=== PATIENT | female | born 1945 | race Caucasian/White ===

== ENCOUNTER 2017-12-31 07:42 | Emergency (ER) | payer MEDICARE ==
[~2017-12-31] VITALS: Ht 170.2 cm; Wt 49.9 kg
[~2017-12-31 07:42] MED LIST: ASPI81EC PO; B-12 COMPL1000 MCG/1 IM; CALCIT950 PO; DILT180 PO; DILT30 PO; METO50 PO; MULVITMIND PO; OMEP20ER PO; WARF5 PO
[2017-12-31] MEDS ORDERED: Flecainide Acet50 MG (08:00)
[2017-12-31] MEDS ORDERED: WARF7.5 PO (08:00)
[2017-12-31] MEDS ORDERED: Cardizem CD 24240 MG PO (08:00)
[2017-12-31 08:06] LABS: BASOPHILS ABSOLUTE AUTO 0.03 K/mm3 (0.00-0.23); BASOPHILS PERCENT AUTO 0 % (0-2); EOSINOPHILS ABSOLUTE AUTO 0.03 K/mm3 (0.00-0.68); EOSINOPHILS PERCENT AUTO 0 % (0-6); Hematocrit 42.6 % (33.0-51.0); Hemoglobin 14.4 g/dL (11.5-16.0); IMMATURE GRAN ABSOLUTE AUTO 0.03 K/mm3 (0.00-0.10); IMMATURE GRAN PERCENT AUTO 0 % (0-1); LYMPHOCYTES ABSOLUTE AUTO 2.18 K/mm3 (0.84-5.20); LYMPHOCYTES PERCENT AUTO 26 % (21-46); MONOCYTES ABSOLUTE AUTO 0.85 K/mm3 (0.16-1.47); MONOCYTES PERCENT AUTO 10 % (4-13); Mean Corpuscular HGB 30.6 pg (26.0-34.0); Mean Corpuscular HGB Conc 33.8 g/dL (31.5-36.5); Mean Corpuscular Volume 90 fL (80-100); Mean Platelet Volume 10.5 fL (9.1-12.4); NEUTROPHILS ABSOLUTE AUTO 5.44 K/mm3 (1.96-9.15); NEUTROPHILS PERCENT AUTO 63 % (41-73); Platelet Count 256 K/mm3 (150-400); RDW Coefficient Variation 12.6 % (11.7-14.2); RDW Standard Deviation 41.4 fL (35.1-46.3); Red Blood Cell Count 4.71 M/mm3 (3.80-5.20); White Blood Cell Count 8.56 K/mm3 (4.00-11.30)
[2017-12-31 08:26] LABS: International Normalized Ratio 2.11; Prothrombin Time Results 22.5 Sec (9.7-11.5)
[2017-12-31 08:54] LABS: Alanine Aminotransfer (ALT/SGP 24 U/L (12-78); Albumin, Blood 3.5 g/dL (3.4-5.0); Alk Phos 54 U/L (50-136); Anion Gap 6 mmol/L (6-16); Aspartate Aminotrans (AST/SGOT 30 U/L (12-37); Bilirubin, Total 0.7 mg/dL (0.1-1.0); Blood Urea Nitrogen 12 mg/dL (8-24); Bun/Creatinine Ratio 17.4 (12.0-20.0); CO2, Blood 26 mmol/L (21-32); Calcium, Blood 8.5 mg/dL (8.5-10.1); Chloride, Blood 109 mmol/L (98-108); Creatinine, Blood 0.69 mg/dL (0.40-1.00); Globulin, Blood 3.5 g/dL (2.2-4.0); Glomerular Filtration Rate >60 (60-); Glucose, Blood 88 mg/dL (70-99); Magnesium, Blood 2.1 mg/dL (1.6-2.4); Potassium, Blood 4.7 mmol/L (3.5-5.5); Sodium, Blood 141 mmol/L (136-145); Troponin I <0.015 ng/mL (0.000-0.040)
== END 2017-12-31 09:42 | disposition home or self-care (01) ==
LOC: ER 07:42
PROVIDERS: Emergency Medicine
DX: R42 Dizziness and giddiness (principal); F43.9 Reaction to severe stress, unspecified; I48.91 Unspecified atrial fibrillation; Z88.1 Allergy status to other antibiotic agents; Z88.8 Allergy status to other drugs, medicaments and biological substances; Z79.899 Other long term (current) drug therapy; Z79.01 Long term (current) use of anticoagulants
CPT/HCPCS: 80053; 81000; 83735; 84443; 84484; 85025; 85610; 93005; 93010; 99284

== ENCOUNTER → 2018-02-05 | Outpatient (CLI) | payer MEDICARE ==
[~2018-02-05] MED LIST changes: +Cardizem CD 24240 MG PO; +Flecainide Acet50 MG; +WARF7.5 PO
== END | disposition home or self-care (01) ==
LOC: PLD 08:42 → LAB SHORT 08:42
DX: D48.5 Neoplasm of uncertain behavior of skin (principal)
CPT/HCPCS: 88305

== ENCOUNTER 2019-04-15 07:41 | Emergency (ER) | payer MEDICARE ==
[~2019-04-15] VITALS: Ht 165.1 cm; Wt 49.0 kg
[2019-04-15 08:30] LABS: Source, Urine Clean Catch
[2019-04-15 08:38] LABS: Bilirubin, Urine Neg (Neg); Blood, Urine Neg (Neg); Glucose Qualitative, Urine Neg (Neg); Ketones, Urine Neg (Neg); Leukocyte Esterase, Urine Neg (Neg); Nitrite, Urine Neg (Neg); Protein, Urine Neg (Neg); Urobilinogen, Urine NORM (Normal)
[2019-04-15 08:40] LABS: BASOPHILS ABSOLUTE AUTO 0.04 K/mm3 (0.00-0.23); BASOPHILS PERCENT AUTO 1 % (0-2); EOSINOPHILS ABSOLUTE AUTO 0.05 K/mm3 (0.00-0.68); EOSINOPHILS PERCENT AUTO 1 % (0-6); Hematocrit 41.4 % (33.0-51.0); Hemoglobin 13.6 g/dL (11.5-16.0); IMMATURE GRAN ABSOLUTE AUTO 0.02 K/mm3 (0.00-0.10); IMMATURE GRAN PERCENT AUTO 0 % (0-1); LYMPHOCYTES ABSOLUTE AUTO 2.32 K/mm3 (0.84-5.20); LYMPHOCYTES PERCENT AUTO 32 % (21-46); MONOCYTES ABSOLUTE AUTO 0.83 K/mm3 (0.16-1.47); MONOCYTES PERCENT AUTO 11 % (4-13); Mean Corpuscular HGB 30.2 pg (26.0-34.0); Mean Corpuscular HGB Conc 32.9 g/dL (31.5-36.5); Mean Corpuscular Volume 92 fL (80-100); Mean Platelet Volume 10.7 fL (9.1-12.4); NEUTROPHILS ABSOLUTE AUTO 4.08 K/mm3 (1.96-9.15); NEUTROPHILS PERCENT AUTO 56 % (41-73); Platelet Count 247 K/mm3 (150-400); RDW Coefficient Variation 12.9 % (11.7-14.2); RDW Standard Deviation 43.3 fL (35.1-46.3); Red Blood Cell Count 4.51 M/mm3 (3.80-5.20); White Blood Cell Count 7.34 K/mm3 (4.00-11.30)
[2019-04-15 08:49] LABS: Appearance, Urine Clear (Clear); Color, Urine Pale Yellow (P-Yellow)
[2019-04-15 08:51] LABS: Alanine Aminotransfer (ALT/SGP 25 U/L (12-78); Albumin, Blood 3.5 g/dL (3.4-5.0); Albumin/Globulin Ratio 1.1 (0.8-1.8); Alk Phos 54 U/L (50-136); Anion Gap 11 mmol/L (6-16); Aspartate Aminotrans (AST/SGOT 21 U/L (12-37); Bilirubin, Total 0.6 mg/dL (0.1-1.0); Blood Urea Nitrogen 10 mg/dL (8-24); Bun/Creatinine Ratio 16.5 (12.0-20.0); CO2, Blood 22 mmol/L (21-32); Calcium, Blood 8.2 mg/dL (8.5-10.1); Chloride, Blood 110 mmol/L (98-108); Creatinine, Blood 0.61 mg/dL (0.40-1.00); Globulin, Blood 3.2 g/dL (2.2-4.0); Glomerular Filtration Rate >60 (60-); Glucose, Blood 102 mg/dL (70-99); Potassium, Blood 3.8 mmol/L (3.5-5.5); Sodium, Blood 143 mmol/L (136-145); Total Protein, Blood 6.7 g/dL (6.4-8.2); Troponin I <0.015 ng/mL (0.000-0.040)
== END 2019-04-15 10:55 | disposition home or self-care (01) ==
LOC: ER 07:41
PROVIDERS: Emergency Medicine
DX: I48.91 Unspecified atrial fibrillation (principal); Z88.1 Allergy status to other antibiotic agents; Z88.8 Allergy status to other drugs, medicaments and biological substances; Z79.01 Long term (current) use of anticoagulants; Z79.899 Other long term (current) drug therapy
CPT/HCPCS: 36415; 71046; 80053; 81003; 83735; 84484; 85025; 93005; 93010; 99285-25

== ENCOUNTER → 2020-08-12 | Outpatient (CLI) | payer MEDICARE ==
[~2020-08-12] MED LIST changes: +PROLIA60 MG/1 ML
== END ==
LOC: LAB 11:54 → LAB SHORT 11:54 → OLS 11:54
DX: I77.6 Arteritis, unspecified (principal)
CPT/HCPCS: 85651

== ENCOUNTER → 2020-09-30 | Outpatient (CLI) | payer MEDICARE | END | disposition home or self-care (01) | LOC: LAB SHORT 12:09 → LAB 12:09 | DX: I77.6 Arteritis, unspecified (principal) | CPT/HCPCS: 85651 ==

== ENCOUNTER 2020-12-06 11:31 | Day surgery (SDC) | payer MEDICARE ==
[~2020-12-06] VITALS: Ht 167.6 cm; Wt 52.1 kg
== END 2020-12-06 13:52 | disposition home or self-care (01) ==
LOC: ORSCSDS 11:31
PROVIDERS: Student in an Organized Health Care Education/Training Program
PROC: 0DB58ZX Excision of Esophagus, Via Natural or Artificial Opening Endoscopic, Diagnostic (ICD-10-PCS; principal; 2020-12-06 12:45)
DX: K21.9 Gastro-esophageal reflux disease without esophagitis (principal); C15.9 Malignant neoplasm of esophagus, unspecified; Z79.01 Long term (current) use of anticoagulants; Z79.899 Other long term (current) drug therapy
CPT/HCPCS: 88305; J2704; J7120

== ENCOUNTER 2021-03-07 18:07 | Emergency (ER) | payer MEDICARE ==
[~2021-03-07] VITALS: Ht 167.6 cm; Wt 50.8 kg
== END 2021-03-07 23:00 | disposition home or self-care (01) ==
LOC: ER 18:07
DX: K94.23 Gastrostomy malfunction (principal); Y83.1 Surgical operation with implant of artificial internal device as the cause of abnormal reaction of the patient, or of later complication, without mention of misadventure at the time of the procedure; Z88.0 Allergy status to penicillin; Z88.8 Allergy status to other drugs, medicaments and biological substances; Z88.1 Allergy status to other antibiotic agents; Z79.01 Long term (current) use of anticoagulants; Z79.899 Other long term (current) drug therapy
CPT/HCPCS: 99282-25

== ENCOUNTER 2021-04-25 06:13 | Day surgery (SDC) | payer MEDICARE | END 2021-04-25 11:03 | disposition home or self-care (01) | LOC: ATC 06:13 | DX: I48.91 Unspecified atrial fibrillation (principal) | CPT/HCPCS: 96372; J1650 ==

== ENCOUNTER 2021-04-26 02:08 | Day surgery (SDC) | payer MEDICARE | END 2021-04-26 10:31 | disposition home or self-care (01) | LOC: ATC 02:08 | DX: I48.91 Unspecified atrial fibrillation (principal) | CPT/HCPCS: 96372; J1650 ==

== ENCOUNTER 2021-04-27 10:35 | Day surgery (SDC) | payer MEDICARE | END 2021-04-27 11:03 | disposition home or self-care (01) | LOC: ATC 10:35 | DX: I48.91 Unspecified atrial fibrillation (principal) | CPT/HCPCS: 96372; J1650 ==

== ENCOUNTER 2021-04-28 00:32 | Day surgery (SDC) | payer MEDICARE | END 2021-04-28 09:18 | disposition home or self-care (01) | LOC: ATC 00:32 | DX: I48.91 Unspecified atrial fibrillation (principal) | CPT/HCPCS: 96372; J1650 ==

== ENCOUNTER 2021-04-29 00:15 | Day surgery (SDC) | payer MEDICARE ==
[2021-04-30] MEDS ORDERED: ENOX80I SC (11:10)
== END 2021-04-29 10:42 | disposition home or self-care (01) ==
LOC: ATC 00:15
DX: I48.91 Unspecified atrial fibrillation (principal)
CPT/HCPCS: 96372; J1650

== ENCOUNTER 2021-04-30 02:13 | Day surgery (SDC) | payer MEDICARE ==
[2021-04-30] MEDS ORDERED: ENOX80I SC (11:10)
== END 2021-04-30 10:30 | disposition home or self-care (01) ==
LOC: ATC 02:13
DX: I48.91 Unspecified atrial fibrillation (principal)
CPT/HCPCS: 96372; J1650

== ENCOUNTER 2021-05-01 02:06 | Day surgery (SDC) | payer MEDICARE ==
[~2021-05-01 02:06] MED LIST changes: +ENOX80I SC
[2021-05-02] MEDS ORDERED: WARF1 (10:35)
== END 2021-05-01 10:35 | disposition home or self-care (01) ==
LOC: ATC 02:06
DX: I48.91 Unspecified atrial fibrillation (principal)
CPT/HCPCS: 96372; J1650

== ENCOUNTER 2021-05-02 10:18 | Day surgery (SDC) | payer MEDICARE ==
[~2021-05-02] VITALS: Ht 167.6 cm; Wt 49.0 kg
[2021-05-02] MEDS ORDERED: WARF1 (10:35)
== END 2021-05-02 12:30 | disposition home or self-care (01) ==
LOC: ORSCSDS 10:18
PROVIDERS: Student in an Organized Health Care Education/Training Program
PROC: 0DB58ZX Excision of Esophagus, Via Natural or Artificial Opening Endoscopic, Diagnostic (ICD-10-PCS; principal; 2021-05-02 12:00)
DX: R13.10 Dysphagia, unspecified (principal); Z85.01 Personal history of malignant neoplasm of esophagus; I48.0 Paroxysmal atrial fibrillation; Z87.891 Personal history of nicotine dependence; Z79.01 Long term (current) use of anticoagulants; Z79.899 Other long term (current) drug therapy
CPT/HCPCS: 88305; J2704; J7120

== ENCOUNTER → 2021-08-17 | Outpatient (CLI) | payer MEDICARE ==
[~2021-08-17] MED LIST changes: +WARF1
== END | disposition home or self-care (01) ==
LOC: LAB SHORT 18:16
DX: R31.0 Gross hematuria (principal)
CPT/HCPCS: 87086

== ENCOUNTER → 2022-02-01 | Outpatient (CLI) | payer MEDICARE ==
[2022-02-01 15:41] LABS: Albumin, Blood 3.5 g/dL (3.4-5.0); Albumin/Globulin Ratio 1.3 (0.8-1.8); Bilirubin, Total 0.6 mg/dL (0.1-1.0); Bun/Creatinine Ratio 34.6 (12.0-20.0); Calcium, Blood 8.7 mg/dL (8.5-10.1); Creatinine, Blood 0.55 mg/dL (0.40-1.00); Globulin, Blood 2.7 g/dL (2.2-4.0); Potassium, Blood 4.4 mmol/L (3.5-5.5); Total Protein, Blood 6.2 g/dL (6.4-8.2)
[2022-02-01 15:57] LABS: BASOPHILS ABSOLUTE AUTO 0.02 K/mm3 (0.00-0.23); BASOPHILS PERCENT AUTO 0 % (0-2); EOSINOPHILS ABSOLUTE AUTO 0.03 K/mm3 (0.00-0.68); EOSINOPHILS PERCENT AUTO 1 % (0-6); Hematocrit 35.1 % (33.0-51.0); Hemoglobin 11.5 g/dL (11.5-16.0); IMMATURE GRAN ABSOLUTE AUTO 0.01 K/mm3 (0.00-0.10); IMMATURE GRAN PERCENT AUTO 0 % (0-1); LYMPHOCYTES ABSOLUTE AUTO 1.07 K/mm3 (0.84-5.20); LYMPHOCYTES PERCENT AUTO 20 % (21-46); MONOCYTES PERCENT AUTO 9 % (4-13); Mean Corpuscular HGB 31.2 pg (26.0-34.0); Mean Corpuscular HGB Conc 32.8 g/dL (31.5-36.5); Mean Corpuscular Volume 95 fL (80-100); Mean Platelet Volume 10.4 fL (9.1-12.4); NEUTROPHILS ABSOLUTE AUTO 3.81 K/mm3 (1.96-9.15); NEUTROPHILS PERCENT AUTO 70 % (41-73); Platelet Count 213 K/mm3 (150-400); RDW Coefficient Variation 12.7 % (11.7-14.2); RDW Standard Deviation 44.4 fL (35.1-46.3); Red Blood Cell Count 3.69 M/mm3 (3.80-5.20); White Blood Cell Count 5.44 K/mm3 (4.00-11.30)
== END ==
LOC: LAB SHORT 12:20
PROVIDERS: Hospitalist
DX: N20.0 Calculus of kidney (principal); R11.0 Nausea
CPT/HCPCS: 80053; 85025

== ENCOUNTER → 2022-07-06 | Outpatient (CLI) | payer MEDICARE ==
[2022-07-06 16:30] LABS: Influenza B, PCR NEGATIVE (NEGATIVE); Resp Syncytial Virus, PCR NEGATIVE (NEGATIVE); SARS-Cov-2 (COVID-19) PCR, MMC NEGATIVE (NEGATIVE)
[2022-07-06 16:31] LABS: Influenza A, PCR POSITIVE (NEGATIVE)
== END | disposition home or self-care (01) ==
LOC: LAB 11:53 → LAB SHORT 11:53
PROVIDERS: Hospitalist
DX: J06.9 Acute upper respiratory infection, unspecified (principal)
CPT/HCPCS: 0241U

== ENCOUNTER 2023-04-10 08:04 | Emergency (ER) | payer MEDICARE ==
[~2023-04-10] VITALS: Ht 165.1 cm; Wt 45.8 kg
[2023-04-10 08:35] LABS: BASOPHILS ABSOLUTE AUTO 0.03 K/mm3 (0.00-0.23); BASOPHILS PERCENT AUTO 1 % (0-2); EOSINOPHILS ABSOLUTE AUTO 0.04 K/mm3 (0.00-0.68); EOSINOPHILS PERCENT AUTO 1 % (0-6); Hematocrit 37.4 % (33.0-51.0); Hemoglobin 12.1 g/dL (11.5-16.0); IMMATURE GRAN ABSOLUTE AUTO 0.02 K/mm3 (0.00-0.10); IMMATURE GRAN PERCENT AUTO 0 % (0-1); LYMPHOCYTES PERCENT AUTO 27 % (21-46); MONOCYTES ABSOLUTE AUTO 0.63 K/mm3 (0.16-1.47); MONOCYTES PERCENT AUTO 11 % (4-13); Mean Corpuscular HGB Conc 32.4 g/dL (31.5-36.5); Mean Corpuscular Volume 93 fL (80-100); Mean Platelet Volume 9.8 fL (9.1-12.4); NEUTROPHILS ABSOLUTE AUTO 3.33 K/mm3 (1.96-9.15); NEUTROPHILS PERCENT AUTO 60 % (41-73); Platelet Count 200 K/mm3 (150-400); RDW Coefficient Variation 12.8 % (11.7-14.2); Red Blood Cell Count 4.04 M/mm3 (3.80-5.20); White Blood Cell Count 5.55 K/mm3 (4.00-11.30)
[2023-04-10 08:57] LABS: Albumin, Blood 3.2 g/dL (3.4-5.0); Bilirubin, Total 0.3 mg/dL (0.1-1.0); Bun/Creatinine Ratio 21.4 (12.0-20.0); Calcium, Blood 8.3 mg/dL (8.5-10.1); Creatinine, Blood 0.66 mg/dL (0.40-1.00); Globulin, Blood 3.2 g/dL (2.2-4.0); Potassium, Blood 3.4 mmol/L (3.5-5.5); Total Protein, Blood 6.4 g/dL (6.4-8.2)
[2023-04-10 11:55] LABS: Source, Urine Clean Catch
[2023-04-10 12:00] LABS: Appearance, Urine Hazy (Clear); Bilirubin, Urine Neg (Neg); Blood, Urine 5+ (Neg); Color, Urine Amber (P-Yellow); Glucose Qualitative, Urine Neg (Neg); Ketones, Urine 1+ (Neg); Leukocyte Esterase, Urine 1+ (Neg); Nitrite, Urine Neg (Neg); Protein, Urine 2+ (Neg); Urobilinogen, Urine NORM (Normal)
[2023-04-10 12:11] LABS: Amorphous Light (0-Heavy); Bacteria Rare /hpf; Calcium Oxalate Crystals Few /hpf; Red Blood Cells, Urine TNTC /hpf (0-2); Squamous Epithelial Cells Rare /hpf (Few)
[2023-04-10 12:16] LABS: International Normalized Ratio 3.39; Prothrombin Time Results 33.2 Sec (9.7-11.5)
[2023-04-10 12:33] VITALS: BP 123/81
[2023-04-10] MEDS ORDERED: TAMS.4ER PO (13:21)
[2023-04-10] MEDS ORDERED: CEFP200 PO (13:21)
[2023-04-10] MEDS ORDERED: OXAYDO5 M1 PO (13:21)
[2023-04-10] MEDS ORDERED: PROM12.5S PR (13:30)
[2023-04-10] MEDS ORDERED: ONDA4ODT MM (13:30)
== END 2023-04-10 15:14 | disposition home or self-care (01) ==
LOC: ER 08:04
PROVIDERS: Emergency Medicine; Student in an Organized Health Care Education/Training Program
DX: N13.2 Hydronephrosis with renal and ureteral calculous obstruction (principal); N36.8 Other specified disorders of urethra; I48.91 Unspecified atrial fibrillation; Z88.0 Allergy status to penicillin; Z88.1 Allergy status to other antibiotic agents; Z88.8 Allergy status to other drugs, medicaments and biological substances; Z79.899 Other long term (current) drug therapy; Z79.01 Long term (current) use of anticoagulants
CPT/HCPCS: 74177; 76856; 80053; 81001; 85025; 85610; 87086; 96374-59; 96375-59; 99284-25; J0696; J1170; J2405; J3480; J7030; Q9967

== ENCOUNTER → 2023-09-13 | Outpatient (CLI) | payer MEDICARE ==
[~2023-09-13] MED LIST changes: +CEFP200 PO; +ONDA4ODT MM; +OXAYDO5 M1 PO; +PROM12.5S PR; +TAMS.4ER PO
[2023-09-13 10:52] LABS: Adenovirus F 40/41 Not Detected (NOT DETECT); Astrovirus Not Detected (NOT DETECT); Campylobacter Sp Not Detected (NOT DETECT); Cryptosporidium Not Detected (NOT DETECT); Cyclospora Cayetanensis Not Detected (NOT DETECT); E. Coli O157 Not Detected (NOT DETECT); Entamoeba Histolytica Not Detected (NOT DETECT); Enteroaggregative E. coli-EAEC Not Detected (NOT DETECT); Enteropathogenic E. coli-EPEC Not Detected (NOT DETECT); Enterotoxigenic E. coli-ETEC Not Detected (NOT DETECT); Giardia Lamblia Not Detected (NOT DETECT); Norovirus GI/GII Not Detected (NOT DETECT); Plesiomonas Shigelloides Not Detected (NOT DETECT); Rotavirus A Not Detected (NOT DETECT); Salmonella Sp Not Detected (NOT DETECT); Sapovirus Not Detected (NOT DETECT); Shiga Toxin-prod E. coli-STEC Not Detected (NOT DETECT); Shigella/Enteroin E. coli-EIEC Not Detected (NOT DETECT); Vibrio Cholerae Not Detected (NOT DETECT); Vibrio Sp Not Detected (NOT DETECT); Yersinia Enterocolitica Not Detected (NOT DETECT)
== END | disposition home or self-care (01) ==
LOC: LAB SHORT 07:30 → LAB 07:30
PROVIDERS: Hospitalist
DX: R19.7 Diarrhea, unspecified (principal)
CPT/HCPCS: 87507

== ENCOUNTER 2023-09-24 13:12 | Emergency (ER) | payer MEDICARE ==
[~2023-09-24] VITALS: Ht 165.1 cm; Wt 45.8 kg
[2023-09-24] MEDS ORDERED: WARFARIN (14:49)
[2023-09-24 15:08] LABS: Influenza A, PCR NEGATIVE (NEGATIVE); Influenza B, PCR NEGATIVE (NEGATIVE); Resp Syncytial Virus, PCR NEGATIVE (NEGATIVE)
[2023-09-24 15:09] LABS: BASOPHILS ABSOLUTE AUTO 0.02 K/mm3 (0.00-0.23); BASOPHILS PERCENT AUTO 0 % (0-2); EOSINOPHILS ABSOLUTE AUTO 0.01 K/mm3 (0.00-0.68); EOSINOPHILS PERCENT AUTO 0 % (0-6); Hematocrit 33.4 % (33.0-51.0); Hemoglobin 10.7 g/dL (11.5-16.0); IMMATURE GRAN ABSOLUTE AUTO 0.01 K/mm3 (0.00-0.10); IMMATURE GRAN PERCENT AUTO 0 % (0-1); LYMPHOCYTES ABSOLUTE AUTO 0.88 K/mm3 (0.84-5.20); LYMPHOCYTES PERCENT AUTO 12 % (21-46); MONOCYTES ABSOLUTE AUTO 1.15 K/mm3 (0.16-1.47); MONOCYTES PERCENT AUTO 15 % (4-13); Mean Corpuscular HGB 26.6 pg (26.0-34.0); Mean Corpuscular Volume 83 fL (80-100); Mean Platelet Volume 10.5 fL (9.1-12.4); NEUTROPHILS ABSOLUTE AUTO 5.43 K/mm3 (1.96-9.15); NEUTROPHILS PERCENT AUTO 73 % (41-73); Platelet Count 239 K/mm3 (150-400); RDW Coefficient Variation 15.6 % (11.7-14.2); RDW Standard Deviation 47.3 fL (35.1-46.3); Red Blood Cell Count 4.02 M/mm3 (3.80-5.20)
[2023-09-24 15:11] LABS: SARS-Cov-2 (COVID-19) PCR, MMC POSITIVE (NEGATIVE)
[2023-09-24] MEDS ORDERED: PAXLOVID 150-11 EAC1 PO (15:31)
[2023-09-24 15:32] LABS: International Normalized Ratio 1.98
[2023-09-24 15:46] LABS: Albumin, Blood 3.4 g/dL (3.4-5.0); Bilirubin, Total 0.4 mg/dL (0.1-1.0); Bun/Creatinine Ratio 17.6 (12.0-20.0); Calcium, Blood 8.6 mg/dL (8.5-10.1); Creatinine, Blood 0.57 mg/dL (0.40-1.00); Globulin, Blood 3.3 g/dL (2.2-4.0); Potassium, Blood 3.7 mmol/L (3.5-5.5); Total Protein, Blood 6.7 g/dL (6.4-8.2)
[2023-09-24 16:46] VITALS: BP 163/80
== END 2023-09-24 16:51 | disposition home or self-care (01) ==
LOC: ER 13:12
PROVIDERS: Student in an Organized Health Care Education/Training Program
DX: U07.1 COVID-19 (principal); I48.91 Unspecified atrial fibrillation; Z79.01 Long term (current) use of anticoagulants; Z79.899 Other long term (current) drug therapy; Z88.0 Allergy status to penicillin; Z88.1 Allergy status to other antibiotic agents; Z88.8 Allergy status to other drugs, medicaments and biological substances
CPT/HCPCS: 0241U; 71046; 80053; 85025; 85610; 85730; 99285-25

== ENCOUNTER 2024-01-31 08:00 | Emergency (ER) | payer MEDICARE ==
[~2024-01-31] VITALS: Ht 165.1 cm; Wt 45.4 kg
[~2024-01-31 08:00] MED LIST changes: +PAXLOVID 150-11 EAC1 PO; +WARFARIN
[2024-01-31] MEDS ORDERED: DILTIAZEM 24HR120 M4 PO (08:08)
[2024-01-31] MEDS ORDERED: JANTOVEN5 M2 PO (08:08)
[2024-01-31] MEDS ORDERED: Tambocor100 MG PO (08:08)
[2024-01-31 08:20] LABS: Source, Urine Clean Catch
[2024-01-31 08:24] LABS: BASOPHILS ABSOLUTE AUTO 0.03 K/mm3 (0.00-0.23); BASOPHILS PERCENT AUTO 1 % (0-2); EOSINOPHILS ABSOLUTE AUTO 0.05 K/mm3 (0.00-0.68); EOSINOPHILS PERCENT AUTO 1 % (0-6); Hematocrit 34.9 % (33.0-51.0); Hemoglobin 10.9 g/dL (11.5-16.0); IMMATURE GRAN ABSOLUTE AUTO 0.02 K/mm3 (0.00-0.10); IMMATURE GRAN PERCENT AUTO 0 % (0-1); LYMPHOCYTES ABSOLUTE AUTO 1.06 K/mm3 (0.84-5.20); LYMPHOCYTES PERCENT AUTO 19 % (21-46); MONOCYTES PERCENT AUTO 11 % (4-13); Mean Corpuscular HGB 26.2 pg (26.0-34.0); Mean Corpuscular HGB Conc 31.2 g/dL (31.5-36.5); Mean Corpuscular Volume 84 fL (80-100); Mean Platelet Volume 9.9 fL (9.1-12.4); NEUTROPHILS ABSOLUTE AUTO 3.78 K/mm3 (1.96-9.15); NEUTROPHILS PERCENT AUTO 68 % (41-73); Platelet Count 241 K/mm3 (150-400); RDW Coefficient Variation 15.9 % (11.7-14.2); RDW Standard Deviation 48.8 fL (35.1-46.3); Red Blood Cell Count 4.16 M/mm3 (3.80-5.20); White Blood Cell Count 5.54 K/mm3 (4.00-11.30)
[2024-01-31 08:32] LABS: Appearance, Urine Cloudy (Clear); Bilirubin, Urine Neg (Neg); Blood, Urine 5+ (Neg); Color, Urine Amber (P-Yellow); Glucose Qualitative, Urine Neg (Neg); Ketones, Urine Neg (Neg); Leukocyte Esterase, Urine 1+ (Neg); Nitrite, Urine Neg (Neg); Protein, Urine 3+ (Neg); Urobilinogen, Urine NORM (Normal)
[2024-01-31 08:39] LABS: Albumin, Blood 3.3 g/dL (3.4-5.0); Albumin/Globulin Ratio 1.1 (0.8-1.8); Bilirubin, Total 0.3 mg/dL (0.1-1.0); Bun/Creatinine Ratio 17.8 (12.0-20.0); Calcium, Blood 8.1 mg/dL (8.5-10.1); Creatinine, Blood 0.79 mg/dL (0.40-1.00); Potassium, Blood 3.7 mmol/L (3.5-5.5); Total Protein, Blood 6.3 g/dL (6.4-8.2)
[2024-01-31 08:46] LABS: Red Blood Cells, Urine TNTC /hpf (0-2)
[2024-01-31 08:47] LABS: Bacteria Many /hpf; Mucus Mod (0-Heavy); Squamous Epithelial Cells Rare /hpf (Few)
[2024-01-31 08:48] LABS: Calcium Oxalate Crystals Mod /hpf
[2024-01-31] MEDS ORDERED: HYDR1TAB94 PO (10:58)
[2024-01-31 11:00] VITALS: BP 131/60
[2024-01-31] MEDS ORDERED: Flomax0.4 MG PO (11:06)
[2024-01-31] MEDS ORDERED: ONDA4ODT MM (11:06)
== END 2024-01-31 11:25 | disposition home or self-care (01) ==
LOC: ER 08:00
PROVIDERS: Emergency Medicine
DX: N13.2 Hydronephrosis with renal and ureteral calculous obstruction (principal)
CPT/HCPCS: 74177; 80053; 81001; 85025; 87086; 99284-25; Q9967

== ENCOUNTER → 2024-05-22 | Outpatient (CLI) | payer MEDICARE ==
[~2024-05-22] MED LIST changes: +DILTIAZEM 24HR120 M4 PO; +Flomax0.4 MG PO; +HYDR1TAB94 PO; +JANTOVEN5 M2 PO; +Tambocor100 MG PO
[2024-05-22 19:45] LABS: Bun/Creatinine Ratio 16.4 (12.0-20.0); Calcium, Blood 8.4 mg/dL (8.5-10.1); Creatinine, Blood 0.67 mg/dL (0.40-1.00); Potassium, Blood 3.6 mmol/L (3.5-5.5)
== END ==
LOC: LAB SHORT 17:29 → LAB 17:29
PROVIDERS: Hospitalist
DX: N13.30 Unspecified hydronephrosis (principal)
CPT/HCPCS: 80048

== ENCOUNTER 2024-05-31 13:54 | Observation (INO) | payer MEDICARE ==
[~2024-05-31] VITALS: Ht 165.1 cm; Wt 45.4 kg
[2024-05-31] MEDS ORDERED: Acetaminophen 500 MG Tab PO ONE (14:35)
[2024-05-31 16:43] LABS: BASOPHILS ABSOLUTE AUTO 0.04 K/mm3 (0.00-0.23); BASOPHILS PERCENT AUTO 1 % (0-2); EOSINOPHILS ABSOLUTE AUTO 0.02 K/mm3 (0.00-0.68); EOSINOPHILS PERCENT AUTO 0 % (0-6); Hemoglobin 9.2 g/dL (11.5-16.0); IMMATURE GRAN ABSOLUTE AUTO 0.03 K/mm3 (0.00-0.10); IMMATURE GRAN PERCENT AUTO 0 % (0-1); LYMPHOCYTES ABSOLUTE AUTO 1.26 K/mm3 (0.84-5.20); LYMPHOCYTES PERCENT AUTO 15 % (21-46); MONOCYTES ABSOLUTE AUTO 0.84 K/mm3 (0.16-1.47); MONOCYTES PERCENT AUTO 10 % (4-13); Mean Corpuscular HGB 24.9 pg (26.0-34.0); Mean Corpuscular HGB Conc 30.7 g/dL (31.5-36.5); Mean Corpuscular Volume 81 fL (80-100); Mean Platelet Volume 9.8 fL (9.1-12.4); NEUTROPHILS ABSOLUTE AUTO 6.09 K/mm3 (1.96-9.15); NEUTROPHILS PERCENT AUTO 74 % (41-73); Platelet Count 278 K/mm3 (150-400); RDW Coefficient Variation 15.3 % (11.7-14.2); RDW Standard Deviation 45.5 fL (35.1-46.3); Red Blood Cell Count 3.69 M/mm3 (3.80-5.20); White Blood Cell Count 8.28 K/mm3 (4.00-11.30)
[2024-05-31 16:59] LABS: Albumin, Blood 3.1 g/dL (3.4-5.0); Bilirubin, Total 0.3 mg/dL (0.1-1.0); Bun/Creatinine Ratio 21.5 (12.0-20.0); Calcium, Blood 8.3 mg/dL (8.5-10.1); Creatinine, Blood 0.74 mg/dL (0.40-1.00); Globulin, Blood 3.1 g/dL (2.2-4.0); Potassium, Blood 3.8 mmol/L (3.5-5.5); Total Protein, Blood 6.2 g/dL (6.4-8.2)
[2024-05-31 20:25] LABS: International Normalized Ratio 1.59; Prothrombin Time Results 16.4 Sec (9.7-11.5)
[2024-05-31] MEDS ORDERED: OxyCODONE HCL 5 MG TAB PO PRN (21:15)
[2024-05-31] MEDS ORDERED: Acetaminophen 325 MG TABLET PO PRN (21:20)
[2024-05-31] MEDS ORDERED: Lactated Ringer's 1,000 ML IV SCH (22:00)
[2024-05-31 23:15] VITALS: BP 155/65
[2024-05-31] MEDS ORDERED: FLU VACC TS2024-25(6MOS UP)/PF 45 MCG/0.5 ML SYRINGE IM ONE (23:30)
--- NOTE | 2024-05-31 23:30 | NUR ---
ADMIT TO SURGICAL FLOOR PT ARRIVED TO SURGICAL UNIT AT 2300 TODAY. PT A/OX4 AND ABLE TO STAND/PIVOT FROM GURNEY TO BED PER HER REQUEST. PT PLEASANT AND COOPERATIVE. REQUESTING ONLY TYLENOL AT THIS TIME FOR PAIN MANAGEMENT. DENIES CHEST PAIN, N/T, N/V OR DYSPNEA. VSS, ON RA. IV PATENT AND SL. SCD APPLIED PER ORDERS. PLAN TO HAVE ORTHO EVALUATION TOMORROW. PT RESTING IN BED, DENIES NEEDS. DEMONSTRATED CALL LIGHT USE. WILL CONTINUE TO CARE FOR PT.
[2024-06-01 04:37] VITALS: BP 132/64
[2024-06-01 04:39] LABS: BASOPHILS ABSOLUTE AUTO 0.03 K/mm3 (0.00-0.23); BASOPHILS PERCENT AUTO 1 % (0-2); EOSINOPHILS ABSOLUTE AUTO 0.05 K/mm3 (0.00-0.68); EOSINOPHILS PERCENT AUTO 1 % (0-6); Hematocrit 27.2 % (33.0-51.0); Hemoglobin 8.4 g/dL (11.5-16.0); IMMATURE GRAN ABSOLUTE AUTO 0.01 K/mm3 (0.00-0.10); IMMATURE GRAN PERCENT AUTO 0 % (0-1); LYMPHOCYTES ABSOLUTE AUTO 1.37 K/mm3 (0.84-5.20); LYMPHOCYTES PERCENT AUTO 23 % (21-46); MONOCYTES ABSOLUTE AUTO 0.79 K/mm3 (0.16-1.47); MONOCYTES PERCENT AUTO 13 % (4-13); Mean Corpuscular HGB 24.6 pg (26.0-34.0); Mean Corpuscular HGB Conc 30.9 g/dL (31.5-36.5); Mean Corpuscular Volume 80 fL (80-100); Mean Platelet Volume 10.2 fL (9.1-12.4); NEUTROPHILS ABSOLUTE AUTO 3.66 K/mm3 (1.96-9.15); NEUTROPHILS PERCENT AUTO 62 % (41-73); Platelet Count 243 K/mm3 (150-400); RDW Coefficient Variation 15.3 % (11.7-14.2); RDW Standard Deviation 44.5 fL (35.1-46.3); Red Blood Cell Count 3.41 M/mm3 (3.80-5.20); White Blood Cell Count 5.91 K/mm3 (4.00-11.30)
[2024-06-01 05:00] LABS: International Normalized Ratio 1.55; Prothrombin Time Results 16.1 Sec (9.7-11.5)
[2024-06-01 05:02] LABS: Bun/Creatinine Ratio 24.9 (12.0-20.0); Calcium, Blood 8.1 mg/dL (8.5-10.1); Creatinine, Blood 0.64 mg/dL (0.40-1.00); Potassium, Blood 3.7 mmol/L (3.5-5.5)
--- NOTE | 2024-06-01 05:11 | NUR ---
SHIFT SUMMARY NO ACUTE CHANGES SINCE ARRIVING ON UNIT. A/OX4 WITH VSS. MEDICATED X 1 FOR PAIN WITH TYLENOL. ON BEDREST AND NPO PER ORDERS. PT ABLE TO REPOSITION SELF IN BED. VOIDING, USING BEDPAN. PLAN FOR ORTHO CONSULT TODAY. PT CURRENTLY RESTING IN BED WITH CALL LIGHT IN REACH. WILL CONTINUE TO CARE FOR PATIENT AND GIVE REPORT TO ONCOMING RN.
[2024-06-01 08:08] VITALS: BP 127/79
[2024-06-01] MEDS ORDERED: Flecainide Acetate 100 MG Tab PO SCH (09:00)
[2024-06-01] MEDS ORDERED: dilTIAZem HCL 120 MG CAP.CD PO SCH (09:00)
[2024-06-01 15:01] VITALS: BP 139/74
--- NOTE | 2024-06-01 15:20 | NUR ---
SHIFT SUMMARY S/P GLF WITH ACETABULAR FX, A/OX4, VSS, TOLERATING PO, NON SURGICAL PER ORTHO, WORKED WITH THERAPY, TTWB. PAIN WELL MANAGED PER EMAR. NO ACUTE EVENTS THIS SHIFT, CALL LIGHT IN REACH.
[2024-06-01] MEDS ORDERED: Warfarin Sodium 7.5 MG Tab PO SCH (18:00)
[2024-06-01 19:53] VITALS: BP 126/69
[2024-06-02 04:15] VITALS: BP 138/66
--- NOTE | 2024-06-02 04:31 | NUR ---
SHIFT SUMMARY NOC. PT ADMIT FOR NON SURGICAL LEFT ACETABULAR FX. PT'S PAIN CONTROLLED WITH ORAL TYLENOL THIS SHIFT. PT STAND-PIVOTS TO BSC AND IS TOE TOUCH ONLY FOR LLE. PT VOIDING URINE AND TOLERATING PO INTAKE. PT A/OX4 AND CALLS APPROPRIATELY. BED IN LOWEST POSITION, CALL LIGHT IN REACH.
[2024-06-02 05:40] LABS: International Normalized Ratio 1.23
[2024-06-02 07:15] VITALS: BP 127/66
[2024-06-02 14:05] VITALS: BP 126/66
[2024-06-02 16:26] VITALS: BP 154/74
--- NOTE | 2024-06-02 16:57 | NUR ---
DISCHARGE NOTE PT TOLERATING REG DIET, VOIDING, AMBULATING TOE TOUCH WB W/ GB AND FWW. PT'S PAIN IS TOLERABLE W/ PO TYLENOL PER EMAR. PT HAS FWW AND GB TO GO HOME W/. DISCHARGE INSTRUCTIONS GONE OVER W/ PT AND FAMILY MEMBERS, COPY GIVEN TO PT. VSS. PT DC'D TO PRIVATE RIDE HOME W/ PERSONAL BELONGINGS VIA WC.
[2024-06-02] MEDS ORDERED: Warfarin Sodium 7.5 MG Tab PO SCH (18:00)
== END 2024-06-02 16:15 | disposition home or self-care (01) ==
LOC: ER 13:54 → SURS 13:55
PROVIDERS: Internal Medicine; Student in an Organized Health Care Education/Training Program; ADMIT Internal Medicine
DX: S32.415A Nondisplaced fracture of anterior wall of left acetabulum, initial encounter for closed fracture (principal); S32.475A Nondisplaced fracture of medial wall of left acetabulum, initial encounter for closed fracture; S32.592A Other specified fracture of left pubis, initial encounter for closed fracture; W18.30XA Fall on same level, unspecified, initial encounter; I48.91 Unspecified atrial fibrillation; D64.9 Anemia, unspecified; Z87.442 Personal history of urinary calculi; Z79.01 Long term (current) use of anticoagulants; Z79.899 Other long term (current) drug therapy; Z88.0 Allergy status to penicillin; Z88.8 Allergy status to other drugs, medicaments and biological substances
CPT/HCPCS: 36415; 72192; 73110; 73502; 80048; 80053; 85025; 85610; 85730; 97110; 97110-CQ; 97116-CQ; 97161; 97530-CQ; 99285-25; A9270; G0378; J7120